=== PATIENT | female | born 1975 | race Caucasian/White ===

== ENCOUNTER 2016-09-01 05:15 | Day surgery (SDC) | payer MEDICARE ==
[2016-08-30 12:25] LABS: BASOPHILS 0.3 % (0-2); EOSINOPHILS 4.5 % (0-7); HEMATOCRIT 46.8 % (36.0-48.0); HEMOGLOBIN 15.4 g/dL (12-16); IMMATURE GRANULOCYTES 0.2 % (0-5); LYMPHOCYTES 36.9 % (15-50); MCH 32.8 pg (26.0-34.0); MCHC 32.9 g/dL (31.0-37.0); MCV 99.6 fL (80.0-100.0); MEAN PLATELET VOLUME 9.4 fL (7.4-10.4); MONOCYTES 7.5 % (2-11); NEUTROPHILS 50.6 % (40-80); PLATELET COUNT 318 10x3/uL (130-400); RDW 13.7 % (11.5-14.5); WBC 10.4 10x3/uL (4.8-10.8)
[2016-08-30 12:40] LABS: ANION GAP 13.8 mmol/L (8-16); CALCIUM 9.5 mg/dL (8.5-10.1); CARBON DIOXIDE 27.7 mmol/L (21.0-32.0); POTASSIUM - SERUM 4.5 mmol/L (3.5-5.1)
[~2016-09-01] VITALS: Ht 149.9 cm; Wt 59.9 kg
[2016-09-01] MEDS ORDERED: ZOFRAN ODT4 MG/UDTAB PO (05:50)
[2016-09-01] MEDS ORDERED: EFFEXOR37.5 MG PO (05:52)
[2016-09-01] MEDS ORDERED: ATIVAN0.5 MG PO (05:52)
[2016-09-01] MEDS ORDERED: ESTROBLEND PO (05:53)
[2016-09-01 05:54] LABS: HCG URINE NEGATIVE (NEGATIVE)
[2016-09-01 05:56] VITALS: BP 129/72; Ht 149.9 cm; Wt 59.9 kg
--- NOTE | 2016-09-06 13:13 | OP ---
PATIENT NAME: AKASH BARAKAT MEDICAL RECORD: [id number] :77 LOCATION:[facility] ADMISSION DATE: SURGEON: JEEVAN LANG MD DATE OF OPERATION: 09/01/2016 PREOPERATIVE DIAGNOSIS: Pelvic pain. POSTOPERATIVE DIAGNOSES: 1. Pelvic endometriosis. 2. Unlikely adenomyosis. 3. Pelvic adhesive disease. PROCEDURE: Diagnostic laparoscopy. SURGEON: Jeevan Lang MD. ESTIMATED BLOOD LOSS: Minimal. INTRAVENOUS FLUIDS: Per anesthesia record. SPECIMENS: None. FINDINGS: 1. Peritoneal endometriosis in the anterior and posterior cul-de-sac. 2. Filmy adhesions involving the small bowel and left pelvic sidewall. 3. Grossly normal-appearing tubes and ovaries bilaterally. COMPLICATIONS: None apparent. SPECIMENS: None. PROCEDURE IN DETAIL: The patient was taken to the operating room where general anesthesia was achieved without difficulty. The patient was then prepped and draped in normal sterile fashion in the dorsal lithotomy position in the [facility]. The urine was straight cathed and only a few drops of urine were returned as the patient had just gone to the bathroom prior to the case. A sponge stick was placed in the vagina for uterine elevation. At this point, a 5-mm incision was made in the umbilicus and a 5-mm bladeless trocar was used to enter the intraperitoneal space under direct visualization of the laparoscope. Following removal of introducer, the camera was removed and intraperitoneal placement was confirmed. The patient was then insufflated, opening pressure was consistent with intraperitoneal placement. Following insufflation, the attention was turned to the pubic symphysis where approximately 5 cm above the pubic symphysis, a 5-mm skin incision was made and a second bladeless trocar was used to enter the intraperitoneal space under direct visualization of the laparoscope. Survey of the abdomen was performed. Several filmy adhesions involving the small bowel were bluntly removed from the left pelvic sidewall. Complete survey of the abdomen and pelvis was performed. The scope was then removed. The patient was desufflated and the trocar ports were removed. The skin was repaired with 3-0 Vicryl in an interrupted fashion. Sponge stick was removed from the vagina. The patient tolerated the procedure well, transferred to postanesthesia recovery stable without incident. TRANSINT:[id number] Voice Confirmation ID: [id number] DOCUMENT ID: [id number] OPERATIVE REPORT [id number] AKASH BARAKAT at 1311 CC: [id number] DICTATION DATE: 09/01/1635 OFFSET LABEL REWINDER: 09/01/16 1328 [facility] 09/01/16 [place] [id number] [place] [id number]
== END 2016-09-01 10:55 | disposition home or self-care (01) ==
LOC: D.OPS 05:15 → D.PAN 07:30 → D.OPS 10:15
PROVIDERS: Obstetrics & Gynecology
DX: N80.3 Endometriosis of pelvic peritoneum (principal); N73.6 Female pelvic peritoneal adhesions (postinfective); F32.9 Major depressive disorder, single episode, unspecified; F41.9 Anxiety disorder, unspecified; F17.200 Nicotine dependence, unspecified, uncomplicated; Z98.1 Arthrodesis status; Z79.899 Other long term (current) drug therapy

== ENCOUNTER 2019-10-25 03:21 | Emergency (ER) | payer MEDICARE ==
[~2019-10-25] VITALS: Ht 149.9 cm; Wt 50.0 kg
[~2019-10-25 03:21] MED LIST: ATIVAN0.5 MG PO; EFFEXOR37.5 MG PO; ESTROBLEND PO; ZOFRAN ODT4 MG/UDTAB PO
[2019-10-25 03:27] VITALS: BP 142/99; Ht 149.9 cm; Wt 50.0 kg
[2019-10-25] MEDS ORDERED: AMOXICILLIN500 M1 PO (03:45)
[2019-10-25] MEDS ORDERED: ULTRAM50 MG PO (03:45)
== END 2019-10-25 04:05 | disposition home or self-care (01) ==
LOC: D.ER 03:21
DX: K05.10 Chronic gingivitis, plaque induced (principal); R68.84 Jaw pain; K02.9 Dental caries, unspecified; Z72.0 Tobacco use